=== PATIENT | male | born 1950 | race Two or more races ===

== ENCOUNTER → 2021-01-28 | Day surgery (SDC) | payer OTHER | END | disposition home or self-care (01) | LOC: ADM 01-23 13:30 → AMB-ENDOS 08:00 → ADM 13:30 → AMB-ENDOS 13:30 | PROVIDERS: ATTEND Colon & Rectal Surgery | DX: D12.8 Benign neoplasm of rectum (principal); K64.2 Third degree hemorrhoids ==

== ENCOUNTER 2022-06-01 05:50 | Day surgery (SDC) | payer OTHER ==
[~2022-06-01 05:50] MED LIST: ADALAT CC60 MG; ATORVASTATIN CA40 MG; COZAAR100 MG; HYDROCHLORIC AC25 ML; LASIX20 MG; METFORMIN HCL500 M3
== END 2022-06-01 11:35 | disposition home or self-care (01) ==
LOC: AMB-ENDOS 05:50
PROVIDERS: ATTEND Colon & Rectal Surgery
DX: Z85.048 Personal history of other malignant neoplasm of rectum, rectosigmoid junction, and anus (principal); R19.5 Other fecal abnormalities; K64.8 Other hemorrhoids; I10 Essential (primary) hypertension; Z20.822 Contact with and (suspected) exposure to COVID-19

== ENCOUNTER 2022-07-01 10:23 | Inpatient (IN) | payer OTHER ==
[~2022-07-01] VITALS: Ht 167.6 cm; Wt 87.5 kg
[2022-07-20] MEDS ORDERED: METOPROLOL SUCC25 MG (14:43)
[2022-07-20] MEDS ORDERED: HYDRALAZINE HCL50 MG (14:43)
[2022-07-20] MEDS ORDERED: OXYC1TAB9 (14:44)
[2022-07-20] MEDS ORDERED: TAMSULOSIN HCL0.4 MG (14:44)
[2022-07-20] MEDS ORDERED: DIPHENOXYLATE-1 EACH (14:44)
[2022-07-20] MEDS ORDERED: FOLIC ACID1 MG (14:44)
[2022-07-20] MEDS ORDERED: PANTOPRAZOLE SO40 MG (14:44)
[2022-07-20] MEDS ORDERED: DIPHENOXYLATE-A60 ML (14:44)
[2022-08-06] MEDS ORDERED: TAMSULOSIN HCL0.4 MG PO (13:33)
[2022-08-06] MEDS ORDERED: INTEGRA F CAPS1 EACH PO (13:33)
[2022-08-06] MEDS ORDERED: ELIQUIS2.5 MG PO (13:33)
[2022-08-06] MEDS ORDERED: AMPICILLIN TRI500 MG PO (13:33)
[2022-08-06] MEDS ORDERED: ABANEU-SL TABL1 EACH SL (13:33)
[2022-08-06] MEDS ORDERED: GABAPENTIN300 MG PO (13:33)
[2022-08-06] MEDS ORDERED: HYDRALAZINE HCL50 MG PO (13:33)
[2022-08-06] MEDS ORDERED: METOPROLOL SUCC25 MG PO (13:33)
[2022-08-06] MEDS ORDERED: HYOSCYAMINE0.125 M1 SL (13:33)
[2022-08-06] MEDS ORDERED: LASIX20 MG PO (13:33)
[2022-08-06] MEDS ORDERED: NIFEDIPINE ER60 MG PO (13:33)
[2022-08-06] MEDS ORDERED: METRONIDAZOLE500 MG PO (13:33)
[2022-08-06] MEDS ORDERED: MORGIDOX100 MG PO (13:33)
[2022-08-06] MEDS ORDERED: COZAAR100 MG PO (13:33)
[2022-08-06] MEDS ORDERED: PANTOPRAZOLE SO40 MG PO (13:33)
[2022-08-06] MEDS ORDERED: INTESTINEX680 M1 PO (13:33)
== END 2022-08-06 21:10 | disposition home or self-care (01) | DRG 330 ==
LOC: SURH 07-20 07:45 → O/R 07-20 08:20 → SURH 07-20 09:30 → SURG 07-20 17:01 → SURH 07-26 11:35
PROVIDERS: ADMIT Colon & Rectal Surgery; ATTEND Colon & Rectal Surgery
PROC: 0DTP4ZZ Resection of Rectum, Percutaneous Endoscopic Approach (ICD-10-PCS; 2022-07-20)
PROC: 07BB4ZZ Excision of Mesenteric Lymphatic, Percutaneous Endoscopic Approach (ICD-10-PCS; 2022-07-20)
PROC: 07BC4ZZ Excision of Pelvis Lymphatic, Percutaneous Endoscopic Approach (ICD-10-PCS; 2022-07-20)
PROC: 0DU Gastrointestinal System, Supplement (ICD-10-PCS; 2022-07-20)
PROC: 0DJD8ZZ Inspection of Lower Intestinal Tract, Via Natural or Artificial Opening Endoscopic (ICD-10-PCS; 2022-07-20)
PROC: 0DTN4ZZ Resection of Sigmoid Colon, Percutaneous Endoscopic Approach (ICD-10-PCS; principal; 2022-07-20 10:45)
PROC: 4A12X4Z Monitoring of Cardiac Electrical Activity, External Approach (ICD-10-PCS; 2022-07-21)
PROC: 02HV33Z Insertion of Infusion Device into Superior Vena Cava, Percutaneous Approach (ICD-10-PCS; 2022-07-23)
PROC: B54DZZZ Ultrasonography of Bilateral Lower Extremity Veins (ICD-10-PCS; 2022-07-24)
PROC: CB121ZZ Planar Nuclear Medicine Imaging of Lungs and Bronchi using Technetium 99m (Tc-99m) (ICD-10-PCS; 2022-07-24)
PROC: BW21ZZZ Computerized Tomography (CT Scan) of Abdomen and Pelvis (ICD-10-PCS; 2022-07-28)
PROC: 30243N1 Transfusion of Nonautologous Red Blood Cells into Central Vein, Percutaneous Approach (ICD-10-PCS; 2022-07-29)
PROC: 0W9J3ZZ Drainage of Pelvic Cavity, Percutaneous Approach (ICD-10-PCS; 2022-08-02)
PROC: B54NZZZ Ultrasonography of Left Upper Extremity Veins (ICD-10-PCS; 2022-08-04)
DX: C20 Malignant neoplasm of rectum (principal); E87.29 Other acidosis; J95.89 Other postprocedural complications and disorders of respiratory system, not elsewhere classified; J98.11 Atelectasis; T81.43XA Infection following a procedure, organ and space surgical site, initial encounter; K68.11 Postprocedural retroperitoneal abscess; K91.89 Other postprocedural complications and disorders of digestive system; K56.7 Ileus, unspecified; N17.9 Acute kidney failure, unspecified; Z16.19 Resistance to other specified beta lactam antibiotics; Z16.12 Extended spectrum beta lactamase (ESBL) resistance; N30.90 Cystitis, unspecified without hematuria; B96.1 Klebsiella pneumoniae [K. pneumoniae] as the cause of diseases classified elsewhere; D64.89 Other specified anemias; I13.10 Hypertensive heart and chronic kidney disease without heart failure, with stage 1 through stage 4 chronic kidney disease, or unspecified chronic kidney disease; N18.9 Chronic kidney disease, unspecified; I25.10 Atherosclerotic heart disease of native coronary artery without angina pectoris; Z93.2 Ileostomy status; Z95.828 Presence of other vascular implants and grafts

== ENCOUNTER 2022-12-13 07:52 | Outpatient (CLI) | payer OTHER ==
[~2022-12-13 07:52] MED LIST changes: +ABANEU-SL TABL1 EACH SL; +AMPICILLIN TRI500 MG PO; +COZAAR100 MG PO; +DIPHENOXYLATE-1 EACH; +DIPHENOXYLATE-A60 ML; +ELIQUIS2.5 MG PO; +FOLIC ACID1 MG; +GABAPENTIN300 MG PO; +HYDRALAZINE HCL50 MG; +HYDRALAZINE HCL50 MG PO; +HYOSCYAMINE0.125 M1 SL; +INTEGRA F CAPS1 EACH PO; +INTESTINEX680 M1 PO; +LASIX20 MG PO; +METOPROLOL SUCC25 MG; +METOPROLOL SUCC25 MG PO; +METRONIDAZOLE500 MG PO; +MORGIDOX100 MG PO; +NIFEDIPINE ER60 MG PO; +OXYC1TAB9; +PANTOPRAZOLE SO40 MG; +PANTOPRAZOLE SO40 MG PO; +TAMSULOSIN HCL0.4 MG; +TAMSULOSIN HCL0.4 MG PO
== END 2022-12-13 07:56 | disposition home or self-care (01) ==
LOC: RX STUDY 07:52
PROVIDERS: ATTEND Colon & Rectal Surgery
DX: C20 Malignant neoplasm of rectum (principal)

== ENCOUNTER 2023-06-29 09:45 | Inpatient (IN) | payer OTHER ==
[~2023-06-29] VITALS: Ht 167.6 cm; Wt 83.0 kg
[2023-07-06] MEDS ORDERED: METRONIDAZOLE/SODIUM CHLORIDE 500 MG/100 ML PIGGYBACK IV ONE (11:30)
[2023-07-06] MEDS ORDERED: CEFTRIAXONE SODIUM 2,000 MG VIAL ONE (11:30)
[2023-07-06] MEDS ORDERED: FINASTERIDE5 MG (13:14)
[2023-07-06] MEDS ORDERED: ADULT ASPIRIN R81 MG (13:14)
[2023-07-06] MEDS ORDERED: LONSURF 20 MG-1 EACH (13:15)
[2023-07-06] MEDS ORDERED: LIDOCAINE HCL 1%/Epi 20ML VIAL IJ ONE (16:37)
[2023-07-06] MEDS ORDERED: BUPIVACAINE HCL/PF 0.5% 30ML ML ONE (16:37)
[2023-07-06] MEDS ORDERED: CHLORHEXIDINE GLUCONATE 120 ML BOTTLE TOP ONE (17:53)
[2023-07-06] MEDS ORDERED: ONDANSETRON HCL 2 MG/ML VIAL IV PRN (18:00)
[2023-07-06] MEDS ORDERED: CEFTRIAXONE SODIUM 2,000 MG VIAL IV SCH (18:00)
[2023-07-06] MEDS ORDERED: CHLORHEXIDINE GLUCONATE 120 ML BOTTLE TOP SCH (18:00)
[2023-07-06] MEDS ORDERED: MORPHINE SULFATE 4 MG/ML CARTRIDGE IV PRN (18:00)
[2023-07-06] MEDS ORDERED: METRONIDAZOLE/SODIUM CHLORIDE 500 MG/100 ML PIGGYBACK IV SCH (18:00)
[2023-07-06] MEDS ORDERED: BUPIVACAINE HCL/PF 0.5% 30ML ML IJ SCH (18:00)
[2023-07-06] MEDS ORDERED: RINGERS SOLUTION,LACTATED 1,000 ML IV SCH (18:00)
[2023-07-06] MEDS ORDERED: LIDOCAINE HCL 100 MG/10ML VIAL IJ SCH (18:00)
[2023-07-06] MEDS ORDERED: OxyCODONE HCL 5 MG TABLET (ROXICODONE) PO PRN (18:00)
[2023-07-06] MEDS ORDERED: ONDANSETRON HCL 2 MG/ML VIAL ONE (18:59)
[2023-07-06] MEDS ORDERED: MORPHINE SULFATE 4 MG/ML VIAL IV ONE ×2 (19:00→20:20)
[2023-07-06] MEDS ORDERED: ONDANSETRON HCL 2 MG/ML VIAL IV ONE (19:00)
[2023-07-06] MEDS ORDERED: ACETAMINOPHEN 500 MG GEL..CAP PO SCH (20:00)
[2023-07-06] MEDS ORDERED: hydrALAZINE HCL 20 MG VIAL IV PRN (20:15)
[2023-07-06] MEDS ORDERED: DEXTROSE 50 % IN WATER 0.5 G/ML DISP.SYRIN IV PRN (20:15)
[2023-07-06] MEDS ORDERED: INSULIN LISPRO 1,000 UNIT/10 ML UNITS SUBCUTANEO PRN (20:15)
[2023-07-06] MEDS ORDERED: hydrALAZINE HCL 25 MG TABLET PO SCH (21:00)
[2023-07-06] MEDS ORDERED: TAMSULOSIN HCL 0.4 MG CAP PO SCH (21:00)
[2023-07-06] MEDS ORDERED: FAMOTIDINE/PF 20 MG/2 ML VIAL IV PUSH SCH (21:00)
[2023-07-06] MEDS ORDERED: SIMETHICONE 125 MG CAPSULE PO SCH (21:00)
[2023-07-06] MEDS ORDERED: FAMOTIDINE/PF 20 MG/2 ML VIAL ONE (21:22)
[2023-07-06] MEDS ORDERED: SIMETHICONE 125 MG CAPSULE PO ONE (21:22)
[2023-07-06] MEDS ORDERED: ACETAMINOPHEN 500 MG GEL..CAP PO ONE (21:22)
[2023-07-06 22:55] LABS: ABG PH 7.346 (7.35-7.45); ABG PO2 74.2 mmHg (80-100); ABG pCO2 44.6 mmHg (35-45); BICARBONATE 23.8 mmol/l (23-25); SaO2 93.6 %; Tco2 25.2 mmol/l
[2023-07-06 22:56] LABS: allen test SATISFACTORY; o2 21 %; puncture site RADIAL RIGHT
[2023-07-06 23:26] LABS: HEMATOCRIT 36.3 % (39.0-48.0); HEMOGLOBIN 12.3 g/dL (13-16.00); MEAN CELL VOLUME 92.8 fL (80.0-100.00); MEAN CORPUSCULAR HEMOGLOBIN 31.4 pg (27.00-32.0); MEAN CORPUSCULAR HGB CONC 33.9 g/dl (32.0-36.0); PLATELET COUNT 177 K/uL (150-450); RED BLOOD COUNT 3.92 M/uL (4.00-6.00); RED CELL DISTRIBUTION WIDTH 12.9 % (11.5-14.5)
[2023-07-07] MEDS ORDERED: METOCLOPRAMIDE HCL 5 MG/ML VIAL ONE (00:43)
[2023-07-07] MEDS ORDERED: GABAPENTIN 300 MG CAPSULE PO ONE (00:44)
[2023-07-07] MEDS ORDERED: ACETAMINOPHEN 500 MG GEL..CAP PO ONE (00:44)
[2023-07-07] MEDS ORDERED: METOCLOPRAMIDE HCL 5 MG/ML VIAL IV SCH (01:00)
[2023-07-07] MEDS ORDERED: GABAPENTIN 300 MG CAPSULE PO SCH (01:00)
[2023-07-07] MEDS ORDERED: CELECOXIB 200 MG CAPSULE PO SCH (05:00)
[2023-07-07 08:45] LABS: HEMATOCRIT 35.3 % (39.0-48.0); HEMOGLOBIN 11.8 g/dL (13-16.00); MEAN CELL VOLUME 92.3 fL (80.0-100.00); MEAN CORPUSCULAR HEMOGLOBIN 30.9 pg (27.00-32.0); MEAN CORPUSCULAR HGB CONC 33.5 g/dl (32.0-36.0); PLATELET COUNT 172 K/uL (150-450); RED BLOOD COUNT 3.83 M/uL (4.00-6.00); RED CELL DISTRIBUTION WIDTH 13.1 % (11.5-14.5)
[2023-07-07] MEDS ORDERED: LACTOBACILLUS ACIDOPHILUS 1 CAP CAP PO SCH (09:00)
[2023-07-07] MEDS ORDERED: LACTULOSE 20 G/30 ML BLIST.PACK PO SCH (09:00)
[2023-07-07] MEDS ORDERED: METOPROLOL SUCCINATE 25 MG TAB.SR.24H PO SCH (09:00)
[2023-07-07] MEDS ORDERED: FINASTERIDE 5 MG TABLET PO SCH (09:00)
[2023-07-07] MEDS ORDERED: HYOSCYAMINE SULFATE 0.125 MG TAB.SUBL SL SCH (09:00)
[2023-07-07] MEDS ORDERED: NIFEDIPINE 90 MG TAB.SA.OSM PO SCH (09:00)
[2023-07-07 09:04] LABS: ALBUMIN 3.2 gm/dL (3.4-5.0); CALCIUM 8.4 mg/dL (8.5-10.1); CREATININE SERUM 1.34 mg/dL (0.70-1.30); GFR 52.55; MAGNESIUM 1.8 mg/dL (1.8-2.4); PHOSPHOROUS 2.7 mg/dL (2.5-4.9); POTASSIUM 3.81 mEq/L (3.5-5.1)
[2023-07-07] MEDS ORDERED: INSULIN LISPRO 1,000 UNIT/10 ML UNITS SUBCUTANEO PRN (11:00)
[2023-07-07] MEDS ORDERED: DEXTROSE 50 % IN WATER 0.5 G/ML DISP.SYRIN IV PRN (11:00)
[2023-07-07] MEDS ORDERED: POLYETHYLENE GLYCOL 3350 17 GM BLIST.PACK PO SCH (17:00)
[2023-07-07] MEDS ORDERED: ENOXAPARIN SODIUM 40 MG/0.4 ML SYRINGE SUBCUTANEO SCH (17:00)
[2023-07-08 06:43] LABS: HEMATOCRIT 32.9 % (39.0-48.0); HEMOGLOBIN 11.3 g/dL (13-16.00); MEAN CELL VOLUME 91.9 fL (80.0-100.00); MEAN CORPUSCULAR HEMOGLOBIN 31.4 pg (27.00-32.0); MEAN CORPUSCULAR HGB CONC 34.2 g/dl (32.0-36.0); PLATELET COUNT 156 K/uL (150-450); RED BLOOD COUNT 3.59 M/uL (4.00-6.00); RED CELL DISTRIBUTION WIDTH 13.2 % (11.5-14.5)
[2023-07-08 07:20] LABS: CALCIUM 7.8 mg/dL (8.5-10.1); CREATININE SERUM 1.87 mg/dL (0.70-1.30); GFR 35.77; MAGNESIUM 1.9 mg/dL (1.8-2.4); PHOSPHOROUS 2.6 mg/dL (2.5-4.9); POTASSIUM 3.98 mEq/L (3.5-5.1)
[2023-07-08] MEDS ORDERED: ENOXAPARIN SODIUM 40 MG/0.4 ML SYRINGE SUBCUTANEO SCH (09:00)
[2023-07-08] MEDS ORDERED: 0.9 % SODIUM CHLORIDE 1,000 ML IV SCH (11:15)
[2023-07-08] MEDS ORDERED: MORPHINE SULFATE 4 MG/ML CARTRIDGE IV PRN (22:00)
[2023-07-08] MEDS ORDERED: OxyCODONE HCL 5 MG TABLET (ROXICODONE) PO PRN (22:00)
[2023-07-09 17:18] LABS: CALCIUM 8.2 mg/dL (8.5-10.1); CREATININE SERUM 1.39 mg/dL (0.70-1.30); GFR 50.37; MAGNESIUM 2.1 mg/dL (1.8-2.4); POTASSIUM 3.83 mEq/L (3.5-5.1)
[2023-07-09 17:29] LABS: PHOSPHOROUS 1.6 mg/dL (2.5-4.9)
[2023-07-09] MEDS ORDERED: POTASSIUM PHOS,M-BASIC-D-BASIC 18 MM in 0.9 % SODIUM CHLORIDE 250 ML IV ONE (18:15)
[2023-07-10] MEDS ORDERED: METRONIDAZOLE/SODIUM CHLORIDE 100 ML IV SCH (11:04)
[2023-07-10] MEDS ORDERED: CIPROFLOXACIN IN 5 % DEXTROSE 200 ML IV SCH (11:04)
[2023-07-11 06:34] LABS: HEMATOCRIT 28.3 % (39.0-48.0); MEAN CELL VOLUME 92.2 fL (80.0-100.00); MEAN CORPUSCULAR HGB CONC 33.7 g/dl (32.0-36.0); RED BLOOD COUNT 3.07 M/uL (4.00-6.00); RED CELL DISTRIBUTION WIDTH 13.6 % (11.5-14.5)
[2023-07-11 07:07] LABS: ALBUMIN 2.6 gm/dL (3.4-5.0); CALCIUM 7.9 mg/dL (8.5-10.1); CREATININE SERUM 1.37 mg/dL (0.70-1.30); GFR 51.22; MAGNESIUM 1.8 mg/dL (1.8-2.4); POTASSIUM 3.75 mEq/L (3.5-5.1)
[2023-07-11 07:46] LABS: PHOSPHOROUS 1.7 mg/dL (2.5-4.9)
[2023-07-11 07:47] LABS: PLATELET COUNT 159 K/uL (150-450)
[2023-07-11 07:49] LABS: HEMOGLOBIN 9.5 g/dL (13-16.00); MEAN CORPUSCULAR HEMOGLOBIN 30.9 pg (27.00-32.0)
[2023-07-11] MEDS ORDERED: Cyanocobalamin/Mecobalamin 1 TAB.SL SL SCH (10:43)
[2023-07-11] MEDS ORDERED: SOD FERRIC GLUC COMPLX/SUCROSE 62.5 MG in 0.9 % SODIUM CHLORIDE 50 ML IV SCH (10:43)
[2023-07-11] MEDS ORDERED: POTASSIUM PHOS,M-BASIC-D-BASIC 3 MM/ML VIAL IV ONE (12:00)
== END 2023-07-13 11:15 | disposition home or self-care (01) | DRG 348 ==
LOC: SURG 07-06 08:42 → O/R 07-06 08:42 → SURH 07-06 09:45 → SURG 07-06 22:17
PROVIDERS: Internal Medicine Geriatric Medicine; Surgery; ADMIT Colon & Rectal Surgery; ATTEND Colon & Rectal Surgery
PROC: 3E0F7SF Introduction of Other Gas into Respiratory Tract, Via Natural or Artificial Opening (ICD-10-PCS; 2023-07-06)
PROC: 0DBB4ZZ Excision of Ileum, Percutaneous Endoscopic Approach (ICD-10-PCS; principal; 2023-07-06 14:00)
PROC: 4A12X4Z Monitoring of Cardiac Electrical Activity, External Approach (ICD-10-PCS; 2023-07-07)
PROC: 02HV33Z Insertion of Infusion Device into Superior Vena Cava, Percutaneous Approach (ICD-10-PCS; 2023-07-09)
DX: C20 Malignant neoplasm of rectum (principal); N17.9 Acute kidney failure, unspecified; D64.89 Other specified anemias; K66.0 Peritoneal adhesions (postprocedural) (postinfection); Z43.2 Encounter for attention to ileostomy; Z85.048 Personal history of other malignant neoplasm of rectum, rectosigmoid junction, and anus; G47.30 Sleep apnea, unspecified; I12.9 Hypertensive chronic kidney disease with stage 1 through stage 4 chronic kidney disease, or unspecified chronic kidney disease; E11.22 Type 2 diabetes mellitus with diabetic chronic kidney disease; N18.9 Chronic kidney disease, unspecified; Z79.4 Long term (current) use of insulin

== ENCOUNTER 2024-07-11 05:21 | Day surgery (SDC) | payer OTHER ==
[~2024-07-11 05:21] MED LIST changes: +ADULT ASPIRIN R81 MG; +FINASTERIDE5 MG; +LONSURF 20 MG-1 EACH
[2024-07-11] MEDS ORDERED: CEFTRIAXONE SODIUM 2,000 MG VIAL ONE (06:33)
[2024-07-11] MEDS ORDERED: METRONIDAZOLE/SODIUM CHLORIDE 500 MG/100 ML PIGGYBACK IV ONE (06:33)
[2024-07-11] MEDS ORDERED: HEMOSTATIC MATRIX 1 KIT KIT TOP ONE (07:26)
[2024-07-11] MEDS ORDERED: DIBUCAINE 30 GM TUBE ONE (07:26)
[2024-07-11] MEDS ORDERED: POVIDONE-IODINE 118 ML BOTT TOP ONE (07:27)
[2024-07-11] MEDS ORDERED: BUPIVACAINE HCL/MPF 0.5% 30ML VIAL ONE (07:27)
[2024-07-11] MEDS ORDERED: LIDOCAINE HCL 1%/EPINEPHRINE 20ML VIAL IJ ONE (07:27)
== END 2024-07-11 11:50 | disposition home or self-care (01) ==
LOC: CIR.AMB 05:21
PROVIDERS: ATTEND Colon & Rectal Surgery
DX: C21.8 Malignant neoplasm of overlapping sites of rectum, anus and anal canal (principal); I10 Essential (primary) hypertension; E11.9 Type 2 diabetes mellitus without complications